=== PATIENT | female | born 1995 | race Caucasian/White ===

== ENCOUNTER 2016-11-15 19:37 | Emergency (ER) | payer OTHER | END 2016-11-15 21:26 | disposition left against medical advice (07) | LOC: UCCORT 19:37 | DX: R11.2 Nausea with vomiting, unspecified (principal); Z53.21 Procedure and treatment not carried out due to patient leaving prior to being seen by health care provider ==

== ENCOUNTER → 2016-11-17 15:54 | Emergency (ER) | payer OTHER ==
[2016-11-17 19:01] VITALS: BP 136/103
[2016-11-17 21:28] LABS: Urine Bacteria Absent (Absent); Urine Bilirubin Negative (Negative); Urine Glucose Negative (Negative); Urine Nitrite Negative (Negative)
[2016-11-17 21:46] LABS: Hematocrit 44 % (35-47); Hemoglobin 14.2 g/dl (12.0-16.0); Mean Corpuscular HGB Conc 32 g/dl (31-36); Mean Corpuscular Hemoglobin 28 pg (27-31); Mean Corpuscular Volume 87 fL (80-97); Mean Platelet Volume 9 um3 (7.4-10.4); Red Blood Count 5.06 10^6/ul (4.0-5.4); Red Cell Distribution Width 13 % (10.5-15)
--- NOTE | 2016-11-17 22:49 | ED ---
Consuelo Zhao Matthew, scribed for Rene Perry MD on 11/17/16 at 2045 . - HPI Summary HPI Summary: A 21 y/o female presents to the ED with mild vaginal bleeding described as just more than spotting starting at 14:30 today and has since resolved. LNMP was October 10. She recently found out she was and believes she is 3 weeks . She had a miscarriage on 06/07/16 after 7 weeks of . She denies any other symptoms. - History of Current Complaint Chief Complaint: EDOBProblems Stated Complaint: 3 WKS PREG/CRAMPING Time Seen by Provider: 11/17/16 19:16 Hx Obtained From: Patient Chief Complaint: Vaginal Bleeding Onset/Duration: Started Hours Ago, Atraumatic, Resolved Timing: Lasting Hours Current Severity: None Pain Intensity: 0 Location of Pain: None Character: None Aggravating Factors: Nothing Alleviating Factors: Nothing Associated Signs and Symptoms: Positive: Negative - Assessment Hx Now: No - Allergies/Home Medications Allergies/Adverse Reactions: Allergies Allergy/AdvReac Type Severity Reaction Status Date / Time No Known Allergies Allergy Verified 06/08/16 16:43 PMH/Surg Hx/FS Hx/Imm Hx Endocrine/Hematology History: Denies: Hx Diabetes Respiratory History: Denies: Hx Asthma Sensory History: Denies: Hx Contacts or Glasses, Hx Hearing Aid Opthamlomology History: Denies: Hx Contacts or Glasses Psychiatric History: Reports: Hx Anxiety - NO MEDS Infectious Disease History: No Infectious Disease History: Denies: Traveled Outside the [place] in Last 30 Days - Family History Family History: No FHx of malignant hyperthermia. No FHx of anesthesia reaction - Social History Alcohol Use: Rare Substance Use Type: Reports: None Smoking Status (MU): Former Smoker Type: Cigarettes Amount Used/How Often: 1 pack per day Have You Smoked in the Last Year: Yes Review of Systems Constitutional: Negative Eyes: Negative ENT: Negative Cardiovascular: Negative Respiratory: Negative Gastrointestinal: Negative Genitourinary: Other - mild vaginal bleeding Musculoskeletal: Negative Skin: Negative Neurological: Negative Psychological: Normal All Other Systems Reviewed And Are Negative: Yes Physical Exam - Physical Exam Triage Information Reviewed: Yes Vital Signs On Initial Exam: Temp Pulse Resp BP Pulse Ox 98.3 F 84 20 136/103 96 11/17/16 18:54 11/17/16 18:54 11/17/16 18:54 11/17/16 18:54 11/17/16 18:54 Vital Signs Reviewed: Yes Appearance: Positive: Well-Appearing, No Pain Distress Skin: Positive: Warm, Skin Color Reflects Adequate Perfusion, Dry Head/Face: Positive: Normal Head/Face Inspection Eyes: Positive: Normal ENT: Positive: Normal ENT inspection Neck: Positive: Supple, Nontender Respiratory/Lung Sounds: Positive: Clear to Auscultation, Breath Sounds Present Cardiovascular: Positive: RRR Abdomen Description: Positive: Nontender, Soft Bowel Sounds: Positive: Present Neurological: Positive: Normal, Sensory/Motor Intact, Alert, Oriented to Person Place, Time Psychiatric: Positive: Affect/Mood Appropriate Diagnostics - Vital Signs Vital Signs Temp Pulse Resp BP Pulse Ox 11/17/16 18:54 98.3 F 84 20 136/103 96 11/17/16 17:09 97.8 F 85 18 141/97 100 11/17/16 16:01 98.4 F 80 18 148/73 100 - Laboratory Lab Results: Lab Results 11/17/16 11/17/16 11/17/16 Range/Units 16:50 21:33 21:33 WBC 13.0 H (3.5-10.8) 10^3/ul RBC 5.06 (4.0-5.4) 10^6/ul Hgb 14.2 (12.0-16.0) g/dl Hct 44 (35-47) % MCV 87 (80-97) fL MCH 28 (27-31) pg MCHC 32 (31-36) g/dl RDW 13 (10.5-15) % Plt Count 285 (150-450) 10^3/ul MPV 9 (7.4-10.4) um3 Neut % (Auto) 64.5 (38-83) % Lymph % (Auto) 21.6 L (25-47) % [place] % (Auto) 11.1 H (1-9) % Eos % (Auto) 1.9 (0-6) % Baso % (Auto) 0.9 (0-2) % Absolute Neuts (auto) 8.4 H (1.5-7.7) 10^3/ul Absolute Lymphs (auto) 2.8 (1.0-4.8) 10^3/ul Absolute Monos (auto) 1.4 H (0-0.8) 10^3/ul Absolute Eos (auto) 0.3 (0-0.6) 10^3/ul Absolute Basos (auto) 0.1 (0-0.2) 10^3/ul Absolute Nucleated RBC 0.01 10^3/ul Nucleated RBC % 0.1 Beta HCG, Quant 29.87 mIU/mL Urine Color Yellow Urine Appearance Clear Urine pH 7.0 (5-9) Ur Specific [place] 1.012 (1.010-1.030) Urine Protein Negative (Negative) Urine Ketones Negative (Negative) Urine Blood 2+ H (Negative) Urine Nitrate Negative (Negative) Urine Bilirubin Negative (Negative) Urine Urobilinogen Negative (Negative) Ur Leukocyte Esterase Negative (Negative) Urine WBC (Auto) Absent (Absent) Urine RBC (Auto) Trace(0-2/hpf) (Absent) Ur Squamous Epith Cells Present H (Absent) Urine Bacteria Absent (Absent) Urine Glucose Negative (Negative) Result Diagrams: 11/17/16 21:33 Lab Statement: Any lab studies that have been ordered have been reviewed, and results considered in the medical decision making process. Course/Dx - Course Course Of Treatment: Ms. Baca had a positive urine test last week and some spotting tonight that she characterizes as less than a period but more than spotting. Her HCG returned low at 27 and she is either very early or impending spontaneous AB. She will need a repeat HCG in a couple days. - Diagnoses Provider Diagnoses: Threatened Discharge - Discharge Plan Condition: Stable Disposition: HOME Patient Education Materials: Threatened Miscarriage (ED) Referrals: [facility] [place] PHYSICIAN REFERRAL [Outside] Additional Instructions: Please follow-up with your primary care physician in 2 days. Please call the ED tomorrow for the results of your labs. The documentation as recorded by the Consuelo shabazz Matthew accurately reflects the service I personally performed and the decisions made by , Rene Perry MD.
== END | disposition home or self-care (01) ==
LOC: ED 15:54
DX: O20.0 Threatened abortion (principal)
CPT/HCPCS: 36415; 81003; 81015; 84702; 85025; 99282

== ENCOUNTER 2017-08-12 10:32 | Emergency (ER) | payer OTHER ==
[2017-08-12] MEDS ORDERED: NS 0.9% 1000 ML* 1,000 ML IV ONE (11:50)
--- NOTE | 2017-08-12 12:04 | RAD ---
INDICATION: Early with bleeding COMPARISON: None TECHNIQUE: Transvaginal scans were performed for the purposes of early evaluation. FINDINGS: There is a single intrauterine gestation with identification of the pole, yolk sac, movement, and cardiac activity of 163 beats for minute. The crown-rump length corresponds to a 11 week 1 day gestation . The estimated due date is March 02, 2018. There is no evidence of subchorionic hemorrhage. Neither ovary is identified as a discrete structure IMPRESSION: INTRAUTERINE GESTATION 11 WEEKS 1 DAY WITH CONFIRMATION OF CARDIAC ACTIVITY.
[2017-08-12 12:17] LABS: ABS Basophils 0 10^3/ul (0-0.2); ABS Eosinophils 0 10^3/ul (0-0.6); ABS Lymphocytes 1.9 10^3/ul (1.0-4.8); ABS Monocytes 0.8 10^3/ul (0-0.8); ABS Neutrophils 4.6 10^3/ul (1.5-7.7); ABS Nucleated RBC 0 10^3/ul; Eosinophil % 0.5 % (0-6); Hematocrit 39 % (35-47); Hemoglobin 13.1 g/dl (12.0-16.0); Lymphocyte % 26.2 % (25-47); Mean Corpuscular HGB Conc 34 g/dl (31-36); Mean Corpuscular Hemoglobin 29 pg (27-31); Mean Corpuscular Volume 86 fL (80-97); Mean Platelet Volume 9 um3 (7.4-10.4); Nucleated Red Blood Cells % 0.1; Platelet Count 258 10^3/ul (150-450); Red Blood Count 4.49 10^6/ul (4.0-5.4); Red Cell Distribution Width 13 % (10.5-15); White Blood Count 7.4 10^3/ul (3.5-10.8)
[2017-08-12 12:32] LABS: EGFR Non-African American 187.2 (>60)
[2017-08-12 13:43] LABS: Urine Appearance Cloudy; Urine Blood 2+ (Negative); Urine Color Yellow; Urine Ketones 2+ (Negative); Urine Protein Negative (Negative); Urine Specific Gravity 1.017 (1.010-1.030); Urine Urobilinogen Negative (Negative)
[2017-08-12 14:26] VITALS: BP 128/72
--- NOTE | 2017-08-13 09:30 | ED ---
Ed Zhao Angela, scribed for Jesus Mendoza MD on 08/12/17 at 1100 . - HPI Summary HPI Summary: This pt is a 21 y/o female, currently 11 weeks A2, presenting to [facility] c/o vaginal bleeding today. Pt reports she passed a large clot today. She states she is curently being treated for a UTI. Pt denies abd pain or cramping. Pt notes she miscarriaged at 7 weeks in her past pregnancies. She is followed up by Dr. Kaufman, OB, in [place]. Pt is currently on Reglan for the nausea and on Cipro for the UTI. - History of Current Complaint Chief Complaint: EDVaginalBleeding Stated Complaint: 11 WKS PREG/VAGINAL BLEEDING Time Seen by Provider: 08/12/17 10:52 Hx Obtained From: Patient Chief Complaint: Vaginal Bleeding Onset/Duration: Started Hours Ago Timing: Lasting Hours Current Severity: None Pain Intensity: 0 Location of Pain: None Character: None Aggravating Factors: Nothing Alleviating Factors: Nothing Associated Signs and Symptoms: Positive: Vaginal Bleeding or Discharge - bleeding, passed a large clot - Assessment Hx Now: No - Allergies/Home Medications Allergies/Adverse Reactions: Allergies Allergy/AdvReac Type Severity Reaction Status Date / Time No Known Allergies Allergy Verified 06/08/16 16:43 PMH/Surg Hx/FS Hx/Imm Hx Endocrine/Hematology History: Denies: Hx Diabetes Respiratory History: Denies: Hx Asthma Sensory History: Denies: Hx Contacts or Glasses, Hx Hearing Aid Opthamlomology History: Denies: Hx Contacts or Glasses Psychiatric History: Reports: Hx Anxiety - NO MEDS Infectious Disease History: No Infectious Disease History: Denies: Traveled Outside the [place] in Last 30 Days - Family History Family History: No FHx of malignant hyperthermia. No FHx of anesthesia reaction - Social History Alcohol Use: Rare Substance Use Type: Reports: None Smoking Status (MU): Former Smoker Type: Cigarettes Amount Used/How Often: 1 pack per day Have You Smoked in the Last Year: Yes Review of Systems Negative: Fever, Chills Eyes: Negative ENT: Negative Negative: Abdominal Pain Genitourinary: Other - vaginal bleeding Skin: Negative Neurological: Negative All Other Systems Reviewed And Are Negative: Yes Physical Exam - Summary Physical Exam Summary: VITAL SIGNS: Reviewed. GENERAL: Patient is a well-developed and nourished female who is lying comfortable in the stretcher. Patient is not in any acute respiratory distress. HEAD AND FACE: No signs of trauma. No ecchymosis, hematomas or skull depressions. No sinus tenderness. EYES: PERRLA, EOMI x 2, No injected conjunctiva, no nystagmus. EARS: Hearing grossly intact. Ear canals and tympanic membranes are within normal limits. MOUTH: Oropharynx within normal limits. NECK: Supple, trachea is midline, no adenopathy, no JVD, no carotid bruit, no c- spine tenderness, neck with full ROM. CHEST: Symmetric, no tenderness at palpation LUNGS: Clear to auscultation bilaterally. No wheezing or crackles. CVS: Regular rate and rhythm, S1 and S2 present, no murmurs or gallops appreciated. ABDOMEN: Soft, non-tender. No signs of distention. No rebound no guarding, and no masses palpated. Bowel sounds are normal. Pelvic Exam: External genitalia is normal. No blood. No CMTs. Vaginal mucosa is without any lesions. EXTREMITIES: FROM in all major joints, no edema, no cyanosis or clubbing. NEURO: Alert and oriented x 3. No acute neurological deficits. Speech is normal and follows commands. SKIN: Dry and warm - Physical Exam Triage Information Reviewed: Yes Vital Signs Reviewed: Yes Diagnostics - Vital Signs Vital Signs Temp Pulse Resp BP Pulse Ox 08/12/17 10:34 97.5 F 96 18 130/72 97 - Laboratory Lab Results: Lab Results 08/12/17 08/12/17 08/12/17 Range/Units 12:00 12:00 12:00 WBC 7.4 (3.5-10.8) 10^3/ul RBC 4.49 (4.0-5.4) 10^6/ul Hgb 13.1 (12.0-16.0) g/dl Hct 39 (35-47) % MCV 86 (80-97) fL MCH 29 (27-31) pg MCHC 34 (31-36) g/dl RDW 13 (10.5-15) % Plt Count 258 (150-450) 10^3/ul MPV 9 (7.4-10.4) um3 Neut % (Auto) 61.6 (38-83) % Lymph % (Auto) 26.2 (25-47) % [place] % (Auto) 11.1 H (1-9) % Eos % (Auto) 0.5 (0-6) % Baso % (Auto) 0.6 (0-2) % Absolute Neuts (auto) 4.6 (1.5-7.7) 10^3/ul Absolute Lymphs (auto) 1.9 (1.0-4.8) 10^3/ul Absolute Monos (auto) 0.8 (0-0.8) 10^3/ul Absolute Eos (auto) 0 (0-0.6) 10^3/ul Absolute Basos (auto) 0 (0-0.2) 10^3/ul Absolute Nucleated RBC 0 10^3/ul Nucleated RBC % 0.1 Sodium 134 (133-145) mmol/L Potassium 3.5 (3.5-5.0) mmol/L Chloride 100 L (101-111) mmol/L Carbon Dioxide 25 (22-32) mmol/L Anion Gap 9 (2-11) mmol/L BUN 6 (6-24) mg/dL Creatinine 0.43 L (0.51-0.95) mg/dL Est GFR ( Amer) 240.8 (>60) Est GFR (Non-Af Amer) 187.2 (>60) BUN/Creatinine Ratio 14.0 (8-20) Glucose 77 (70-100) mg/dL Lactic Acid 0.9 (0.5-2.0) mmol/L Calcium 9.3 (8.6-10.3) mg/dL Total Bilirubin 0.40 (0.2-1.0) mg/dL AST 17 (13-39) U/L ALT 20 (7-52) U/L Alkaline Phosphatase 64 (34-104) U/L Total Protein 7.4 (6.4-8.9) g/dL Albumin 3.9 (3.2-5.2) g/dL Globulin 3.5 (2-4) g/dL Albumin/Globulin Ratio 1.1 (1-3) Beta HCG, Quant 318581.00 mIU/mL Urine Color Urine Appearance Urine pH (5-9) Ur Specific [place] (1.010-1.030) Urine Protein (Negative) Urine Ketones (Negative) Urine Blood (Negative) Urine Nitrate (Negative) Urine Bilirubin (Negative) Urine Urobilinogen (Negative) Ur Leukocyte Esterase (Negative) Urine WBC (Auto) (Absent) Urine RBC (Auto) (Absent) Ur Squamous Epith Cells (Absent) Urine Bacteria (Absent) Urine Glucose (Negative) Blood Type Antibody Screen 08/12/17 08/12/17 Range/Units 12:00 13:15 WBC (3.5-10.8) 10^3/ul RBC (4.0-5.4) 10^6/ul Hgb (12.0-16.0) g/dl Hct (35-47) % MCV (80-97) fL MCH (27-31) pg MCHC (31-36) g/dl RDW (10.5-15) % Plt Count (150-450) 10^3/ul MPV (7.4-10.4) um3 Neut % (Auto) (38-83) % Lymph % (Auto) (25-47) % [place] % (Auto) (1-9) % Eos % (Auto) (0-6) % Baso % (Auto) (0-2) % Absolute Neuts (auto) (1.5-7.7) 10^3/ul Absolute Lymphs (auto) (1.0-4.8) 10^3/ul Absolute Monos (auto) (0-0.8) 10^3/ul Absolute Eos (auto) (0-0.6) 10^3/ul Absolute Basos (auto) (0-0.2) 10^3/ul Absolute Nucleated RBC 10^3/ul Nucleated RBC % Sodium (133-145) mmol/L Potassium (3.5-5.0) mmol/L Chloride (101-111) mmol/L Carbon Dioxide (22-32) mmol/L Anion Gap (2-11) mmol/L BUN (6-24) mg/dL Creatinine (0.51-0.95) mg/dL Est GFR ( Amer) (>60) Est GFR (Non-Af Amer) (>60) BUN/Creatinine Ratio (8-20) Glucose (70-100) mg/dL Lactic Acid (0.5-2.0) mmol/L Calcium (8.6-10.3) mg/dL Total Bilirubin (0.2-1.0) mg/dL AST (13-39) U/L ALT (7-52) U/L Alkaline Phosphatase (34-104) U/L Total Protein (6.4-8.9) g/dL Albumin (3.2-5.2) g/dL Globulin (2-4) g/dL Albumin/Globulin Ratio (1-3) Beta HCG, Quant mIU/mL Urine Color Yellow Urine Appearance Cloudy Urine pH 6.0 (5-9) Ur Specific [place] 1.017 (1.010-1.030) Urine Protein Negative (Negative) Urine Ketones 2+ H (Negative) Urine Blood 2+ H (Negative) Urine Nitrate Negative (Negative) Urine Bilirubin Negative (Negative) Urine Urobilinogen Negative (Negative) Ur Leukocyte Esterase 2+ H (Negative) Urine WBC (Auto) Trace(0-5/hpf) (Absent) Urine RBC (Auto) Trace(0-2/hpf) (Absent) Ur Squamous Epith Cells Present H (Absent) Urine Bacteria Absent (Absent) Urine Glucose Negative (Negative) Blood Type B Positive Antibody Screen Negative Result Diagrams: 08/12/17 12:00 08/12/17 12:00 Lab Statement: Any lab studies that have been ordered have been reviewed, and results considered in the medical decision making process. - Ultrasound No standard instances Ultrasound Interpretation: Positive (See Comments) - Ultrasound IMPRESSION : Intrauterine gestation 11 week 1 day with confirmation of cardiac activity. Dr. Mendoza has reviewed this radiology report. Ultrasound Interpretation Completed By: Radiologist Course/Dx - Course Assessment/Plan: This pt is a 21 y/o female, currently 11 weeks A2 , presenting to [facility] c/o vaginal bleeding today. Pt reports she passed a large clot today. She states she is curently being treated for a UTI. Pt denies abd pain or cramping. Pt notes she miscarriaged at 7 weeks in her past pregnancies. She is followed up by Dr. Kaufman, OB, in [place]. Pt is currently on Reglan for the nausea and on Cipro for the UTI. Test results without any significant abnormalities. Urinalysis is negative for UTI. US shows Intrauterine gestation 11 week 1 day with confirmation of cardiac activity. i did a pelvic exam for the pt that showed no bleeding. I discussed the test results and findings with Dr. Willis, Physics Technical Officer, who recommended for the pt to be discharged home and follow up with her Physics Technical Officer. Pt was recommended pelvic rest and no intercourse. Pt is hemodynamically stable, alert and oriented x3. - Differential Diagnosis/HQI/PQRI: Hyperemesis Gravidarum, Subchorionic Hemorrhage , Vaginal Bleeding - Diagnoses Provider Diagnoses: Threatened miscarriage - Provider Notifications Discussed Care Of Patient With: Bayron Willis Time Discussed With Above Provider: 14:11 Instructed by Provider To: Other - I discussed pt care with Dr. Willis, Physics Technical Officer, who recommends pelvic rest and discharge the pt with follow up from her ObGyn. Discharge - Discharge Plan Condition: Stable Disposition: HOME Patient Education Materials: Threatened Miscarriage (ED) Referrals: Arslan Kaufman MD [Medical Doctor] - 3 Days No Primary Care Phys,NOPCP [Medical Doctor] - Additional Instructions: Recommend pelvic rest. Please follow up with your ObGyn, Dr. Kaufman in [place]. RETURN TO THE ED FOR ANY WORSENING OR NEW SYMPTOMS. The documentation as recorded by the Ed shabazz Angela accurately reflects the service I personally performed and the decisions made by me, Jesus Mendoza MD.
== END 2017-08-12 14:25 | disposition home or self-care (01) ==
LOC: ED 10:32
DX: O20.0 Threatened abortion (principal); Z3A.11 11 weeks gestation of pregnancy
CPT/HCPCS: 36415; 76801; 80053; 81003; 81015; 83605; 84702; 85025; 86850; 86900; 86901; 87086; 96360; 99282

== ENCOUNTER 2017-10-20 11:49 | Emergency (ER) | payer OTHER ==
[2017-10-20 13:02] VITALS: BP 124/59
--- NOTE | 2017-10-20 13:46 | UC ---
Complaint Female HPI - HPI Summary HPI Summary: This 21 week woman comes in reporting some orange red spotting this morning and the sensation she has a urinary tract infection. Patient denies fevers chills nausea vomiting night sweats flank pain. Patient states she's had 2 urinary tract infections already with this that presented the same way. Patient did not call her OB doctor prior to coming in to be seen further advice. - History Of Current Complaint Chief Complaint: UCGU Stated Complaint: UTI SYMPTOMS Time Seen by Provider: 10/20/17 13:29 Hx Obtained From: Patient ?: Yes - 21weeks Onset/Duration: Sudden Onset, Lasting Days - 1, Still Present Timing: Constant Severity Currently: None Pain Intensity: 0 Pain Scale Used: 0-10 Numeric Character: Not Applicable - Uncomfortable sensation at her urethra Aggravating Factor(s): Urination Alleviating Factor(s): Position Associated Signs And Symptoms: Positive: Negative Related Hx: - 3, Para - 0 - Allergies/Home Medications Allergies/Adverse Reactions: Allergies Allergy/AdvReac Type Severity Reaction Status Date / Time No Known Allergies Allergy Verified 10/20/17 12:58 Home Medications: Home Medications Pnv No.95/Ferrous Fum/Folic AC [ Tablet] 1 tab PO DAILY 10/20/17 [ History Confirmed 10/20/17] PMH/Surg Hx/FS Hx/Imm Hx Previously Healthy: Yes - Surgical History Surgical History: None - Family History Known Family History: Positive: None Family History: No FHx of malignant hyperthermia. No FHx of anesthesia reaction - Social History Occupation: Employed Full-time Lives: With Family Alcohol Use: None Substance Use Type: None Smoking Status (MU): Former Smoker Type: Cigarettes Amount Used/How Often: 1 pack per day Have You Smoked in the Last Year: Yes When Did the Patient Quit Smoking/Using Tobacco: 05/02/2016 - Immunization History Vaccination Up to Date: Yes Review of Systems Constitutional: Negative Skin: Negative Eyes: Negative ENT: Negative Respiratory: Negative Cardiovascular: Negative Gastrointestinal: Negative Genitourinary: Dysuria - She notices the sensation of discomfort at her urethra Motor: Negative Neurovascular: Negative Musculoskeletal: Negative Neurological: Negative Psychological: Negative Is Patient Immunocompromised?: No All Other Systems Reviewed And Are Negative: Yes Physical Exam Triage Information Reviewed: Yes Appearance: Well-Appearing, No Pain Distress, Well-Nourished Vital Signs: Initial Vital Signs Temp 98.6 F 10/20/17 12:55 Pulse 80 10/20/17 12:55 Resp 18 10/20/17 12:55 BP 124/59 10/20/17 12:55 Pulse Ox 100 10/20/17 12:55 Vital Signs Reviewed: Yes Eye Exam: Normal Eyes: Positive: Conjunctiva Clear ENT Exam: Normal ENT: Positive: Normal ENT inspection, Hearing grossly normal, Pharynx normal. Negative: Nasal drainage, TMs normal, Muffled voice, Hoarse voice, Dental tenderness Dental Exam: Normal Neck exam: Normal Neck: Positive: Supple, Nontender, No Lymphadenopathy Respiratory Exam: Normal Respiratory: Positive: Chest non-tender, Lungs clear, Normal breath sounds, No respiratory distress, No accessory muscle use Cardiovascular Exam: Normal, Other - heart tones 150 Cardiovascular: Positive: RRR, No Murmur, Pulses Normal, Brisk Capillary Refill Abdominal Exam: Normal Abdomen Description: Positive: Nontender, No Organomegaly, Soft, Other: - fundus 1 fb below umbilicus,. Negative: CVA Tenderness (R), CVA Tenderness (L) , Hepatomegaly Bowel Sounds: Positive: Present Musculoskeletal Exam: Normal Musculoskeletal: Positive: Strength Intact, ROM Intact, No Edema Neurological Exam: Normal Neurological: Positive: Alert, Muscle Tone Normal Psychological Exam: Normal Skin Exam: Normal Diagnostics - Laboratory Diagnostic Studies Completed/Ordered: UA is +1 blood, +3 leukoesterase Complaint Female Dx - Course Course Of Treatment: Spoke with Dr. Valdez on the phone Dr. Valdez advises patient does not go to the emergency department. Dr. Valdez just like the patient treated for the urinary tract infection and to follow-up in the office this week; information given to the patient - Differential Dx/Diagnosis Provider Diagnoses: UTI and Discharge - Sign-Out/Discharge Documenting (check all that apply): Discharge - Discharge Plan Condition: Stable Disposition: HOME Prescriptions: Nitrofurantoin Macrocrystals* [Macrodantin*] 100 mg PO BID 5 Days #10 cap Patient Education Materials: Urinary Tract Infection in (ED) Referrals: Deysi Valdez MD [Medical Doctor] - 3 Days Additional Instructions: I spoke with Dr. Valdez. She likely to follow up in the office this week. Please call her or go to the emergency department for any worsening in symptoms - Billing Disposition and Condition Condition: STABLE Disposition: HOME
== END 2017-10-20 14:38 | disposition home or self-care (01) ==
LOC: UCCORT 11:49
DX: O23.42 Unspecified infection of urinary tract in pregnancy, second trimester (principal); Z3A.21 21 weeks gestation of pregnancy; Z87.891 Personal history of nicotine dependence
CPT/HCPCS: 81003; 87086; 99212; G0463

== ENCOUNTER 2019-05-20 12:38 | Emergency (ER) | payer OTHER ==
[2019-05-20 13:42] VITALS: BP 107/57
--- NOTE | 2019-05-20 14:08 | UC ---
Throat Pain/Nasal Familia HPI - HPI Summary HPI Summary: 23 year old female with no PMH presents with sore throat. SYmptoms started saturday, + throat pain, + fever x 2 days, + right ear pain. Patient states symtpoms have improved greatly, no fever, no chills, otherwise feeling well now. Concerned for strep as she has had in past. no SOB. + raspy voice. - History of Current Complaint Chief Complaint: UCGeneralIllness Stated Complaint: SORE THROAT Time Seen by Provider: 05/20/19 13:38 Hx Obtained From: Patient Hx Last Menstrual Period: "like, a week ago" ?: No Onset/Duration: Sudden Onset - saturday, Lasting Days Severity: Moderate Pain Intensity: 3 Pain Scale Used: 0-10 Numeric Cough: None Associated Signs & Symptoms: Positive: Dysphagia - improved, Hoarseness. Negative: Sinus Discomfort, Nasal Discharge, Fever, Vomiting, Rash - Allergies/Home Medications Allergies/Adverse Reactions: Allergies Allergy/AdvReac Type Severity Reaction Status Date / Time No Known Allergies Allergy Verified 05/20/19 13:36 Home Medications: Home Medications Control Pill 1 tab PO DAILY 05/20/19 [History] D-Methorphan/PE/Acetaminophen [Vicks Dayquil Cold & Flu] 2 cap PO Q6H PRN [History Confirmed 05/20/19] QUEtiapine TAB* [Seroquel 25 MG TAB*] 25 mg PO 1900 05/20/19 [History Confirmed 05/20/19] PMH/Surg Hx/FS Hx/Imm Hx Previously Healthy: Yes - Surgical History Surgical History: None - Family History Known Family History: Positive: Non-Contributory Family History: No FHx of malignant hyperthermia. No FHx of anesthesia reaction - Social History Occupation: Student Alcohol Use: None Substance Use Type: None Smoking Status (MU): Light Every Day Tobacco Smoker Type: Cigarettes Amount Used/How Often: <1/3 PPD Length of Time of Smoking/Using Tobacco: Since Age 18 (Quit for 3 Years) Have You Smoked in the Last Year: Yes When Did the Patient Quit Smoking/Using Tobacco: 05/02/2016 - Immunization History Vaccination Up to Date: Yes Review of Systems All Other Systems Reviewed And Are Negative: Yes Constitutional: Negative: Fever, Chills, Fatigue ENT: Positive: Sore Throat, Ear Ache Cardiovascular: Positive: Negative Psychological: Positive: Negative Is Patient Immunocompromised?: No Physical Exam Triage Information Reviewed: Yes Appearance: Well-Appearing, No Pain Distress, Well-Nourished Vital Signs: Initial Vital Signs Temp 97.9 F 05/20/19 13:35 Pulse 70 05/20/19 13:35 Resp 16 05/20/19 13:35 BP 107/57 05/20/19 13:35 Pulse Ox 100 05/20/19 13:35 Vital Signs Reviewed: Yes Eyes: Positive: Conjunctiva Clear ENT: Positive: Hearing grossly normal, Pharyngeal erythema - right sided, mild, TMs normal - fluid posterior to right TM, no erythema, Tonsillar swelling - right sided, mild, Grade 2 right only, Tonsillar exudate - right sided., Uvula midline. Negative: TM bulging, TM dull, TM red, Sinus tenderness Neck: Positive: Supple, Nontender, No Lymphadenopathy Cardiovascular: Positive: RRR, No Murmur Psychological Exam: Normal Throat Pain/Nasal Course/Dx - Course Course Of Treatment: Likely viral pharyngitis: - Increase fluid intake - Over the counter medications for pain- tylenol/ motrin - Throat lozenges to help with symptoms. - Return with difficulty swallowing, fever > 102, increased pain, neck stiffness - Differential Dx/Diagnosis Differential Diagnosis/HQI/PQRI: Pharyngitis, URI Provider Diagnosis: Pharyngitis Discharge ED - Sign-Out/Discharge Documenting (check all that apply): Patient Departure All imaging exams completed and their final reports reviewed: No Studies - Discharge Plan Condition: Good Disposition: HOME Patient Education Materials: Pharyngitis (ED) Referrals: No Primary Care Phys,NOPCP [Primary Care Provider] - [facility] [Outside] Additional Instructions: Likely viral pharyngitis: - Increase fluid intake - Over the counter medications for pain- tylenol/ motrin - Throat lozenges to help with symptoms. - Return with difficulty swallowing, fever > 102, increased pain, neck stiffness - Billing Disposition and Condition Condition: GOOD Disposition: Home
== END 2019-05-20 14:09 | disposition home or self-care (01) ==
LOC: UCCORT 12:38
DX: J02.9 Acute pharyngitis, unspecified (principal); F17.210 Nicotine dependence, cigarettes, uncomplicated; H92.01 Otalgia, right ear
CPT/HCPCS: 87651; 99211; G0463